=== PATIENT | male | born 1960 ===

== ENCOUNTER 2020-07-21 20:10 | Inpatient (IN) | payer MEDICARE, SELFPAY ==
[~2020-07-21 20:10] MED LIST: Glycopyrrolate 0.2 MG/ML 5 ML SYRINGE ONE; Iopamidol-370 76% 500 ML 1 ML ONE; PHENYLEPHRINE-NS 100 MCG/ML 10 ML SYRINGE ONE; Rocuronium Bromide 10 MG/ML (10ML VIAL) ONE; ePHEDrine 50 MG/ML VIAL ONE
[2020-07-21] MEDS ORDERED: Sodium Bicarb 50 MEQ/50 ML Abboject 8.4% SYRINGE ONE (20:21)
[2020-07-21] MEDS ORDERED: Calcium Chloride 1 GM/10 ML Abboject SYRINGE ONE (20:21)
[2020-07-21] MEDS ORDERED: Fentanyl 100 MCG/2 ML VIAL ONE ×2 (20:28→21:13)
[2020-07-21] MEDS ORDERED: Midazolam HCl 2 mg/2 ml Vial ONE (20:30)
[2020-07-21 20:31] LABS: #Eosinphils 0.1 thou/uL (0.0-0.7); #Lymphocytes 2.4 thou/uL (1.20-3.40); #Monocytes 0.6 thou/uL (0.11-0.59); #Neutrophils 5.9 thou/uL (1.40-6.50); %Basophils 0.4 % (0.0-1.0); %Eosinophils 0.9 % (0.0-10.0); %Lymphocytes 26.2 % (21.0-51.0); %Monocytes 6.6 % (0.0-10.0); Mean Corpuscular HGB CONC 33.2 g/dL (32.0-36.0); Mean Corpuscular Volume 93.5 fL (78.0-98.0); Mean Platelet Volume 6.9 fL (7.4-10.4); Platelet Count 215 thou/uL (130-400); RBC Distribution Width 13.7 % (11.5-14.5); Red Blood Cell (RBC) Count 3.56 mill/uL (4.70-6.10)
[2020-07-21 20:38] LABS: INR-International Normal Ratio 1.2; Prothrombin Time 14.9 sec (12.0-14.7)
[2020-07-21] MEDS ORDERED: Sodium Chloride 0.9% 100 ML ONE (20:40)
[2020-07-21] MEDS ORDERED: Piperacillin/Tazobactam 3.375 GM VIAL ONE (20:40)
[2020-07-21 20:46] LABS: ALT (SGPT) 39 U/L (8-55); AST (SGOT) 102 U/L (5-34); Albumin 3.5 g/dL (3.5-5.0); Alkaline Phosphatase 81 U/L (40-110); Anion Gap 25 mmol/L (10-20); BUN (Urea Nitrogen) 7 mg/dL (8.4-25.7); Bilirubin, Total 0.2 mg/dL (0.2-1.2); CK (CPK) 353 U/L (30-200); Calc. Creatinine Clearance 0 mL/min (70-130); Calcium 7.3 mg/dL (7.8-10.44); Carbon Dioxide 11 mmol/L (22-29); Chloride 103 mmol/L (98-107); Globulin 2.5 g/dL (2.4-3.5); Glucose 134 mg/dL (70-105); Sodium 135 mmol/L (136-145)
[2020-07-21] MEDS ORDERED: Tranexamic Acid 1,000 MG in Sodium Chloride 0.9% 250 ML 250 ML IVPB SCH (21:00)
[2020-07-21 21:05] LABS: Actual Bicarbonate (HCO3a) 13.8 mEq/L (22-28); Analyzer IN Cardio ER; Base Excess (BEa) -11.7 mEq/L (-2.0 to +3.0); CO2 Tension 30.5 mmHg (35.0-45.0); Calcium, Ionized (arterial) 1.47 mmol/L (1.12-1.30); Carboxyhemoglobin (COHb) 0.3 gm% (0.0-3.0); O2 Tension (PaO2), arterial 305.6 mmHg (80.0-100.0); Potassium - ABG Lab 2.57 mmol/L (3.70-5.30); pH, Arterial 7.28 (7.35-7.45)
[2020-07-21 21:07] LABS: Puncture Site LRA
[2020-07-21 21:08] LABS: ALV-art Gradient 369.275 mmHg (0-20)
[2020-07-21] MEDS ORDERED: fentaNYL Citrate/PF 2,000 MCG in Sodium Chloride 0.9% 60 ML IV SCH (21:15)
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
[2020-07-21] MEDS ORDERED: Fentanyl 250 MCG/5 ML VIAL ONE (21:36)
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
[2020-07-21 21:39] LABS: Bacteria/HPF None Seen HPF (None Seen); Bilirubin Negative (Negative); Blood, Urine Trace (Negative); Clarity Clear (Clear); Glucose, Urine (Dipstick) Normal (Negative); Ketone, Urine Negative (Negative); Leukocyte Negative Leu/uL (Negative); Nitrite Negative (Negative); Protein, Urine (Dipstick) Negative (Neg-Trace); RBC/HPF 0-3 HPF (0-3); Squamous Epithelial None Seen HPF (0-3); Urobilinogen Normal mg/dL (Less than 2); WBC/HPF 0-3 HPF (0-3); pH, Urine 5.5 (5.0-9.0)
[2020-07-21] MEDS ORDERED: hydrALAZINE 20 MG/ML VIAL SLOW IVP PRN (21:46)
[2020-07-21] MEDS ORDERED: Dextrose 5% in Water 1,000 ML IV PRN (21:46)
[2020-07-21] MEDS ORDERED: Dextrose 50% Abboject 50 ML SYRINGE SLOW IVP PRN (21:46)
[2020-07-21] MEDS ORDERED: Ondansetron PF 4 MG/2 ML Vial IVP PRN (21:46)
[2020-07-21] MEDS ORDERED: Ventilator Sedation Protocol 1 EACH FS ONE (21:50)
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
[2020-07-21 22:12] LABS: SARS-CoV-2 NAA Rapid Test Not Detected (NotDetected)
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
[2020-07-21 22:38] LABS: Acetaminophen Less than 6.0 mcg/mL (10.0-30.0); Alcohol 250 mg/dL (Less than 10); Alcohol 253 mg/dL (Less than 10); Magnesium 1.3 mg/dL (1.6-2.6); Phosphorus 3.7 mg/dL (2.3-4.7); Salicylate Less than 8.0 mg/dL (15.0-30.0)
[2020-07-21 22:43] LABS: Cocaine Metabolite Screen Not Detected (NotDetected); Medtox Reader # READER 4; Methamphetamine Not Detected (NotDetected); Opiate Screen Not Detected (NotDetected); Phencyclidine (PCP) Not Detected (NotDetected); THC/Cannabinoid Screen Not Detected (NotDetected)
[2020-07-21 22:44] LABS: Amphetamine Not Detected (NotDetected); Barbiturates Screen Not Detected (NotDetected); Benzodiazepine Screen Not Detected (NotDetected); Medtox Control Line Valid? VALID (VALID); Methadone Not Detected (NotDetected); Oxycodone Screen Not Detected (NotDetected); Tricyclic Screen Not Detected (NotDetected)
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
[2020-07-21] MEDS ORDERED: Fentanyl BOLUS 250 ML IVPB PRN (23:00)
[2020-07-21] MEDS ORDERED: Propofol 1,000 MG/100 ML VIAL IV PRN (23:00)
[2020-07-21] MEDS ORDERED: Lorazepam 2 MG/ML VIAL SLOW IVP PRN (23:00)
[2020-07-21] MEDS ORDERED: Morphine 2 MG/ML VIAL SLOW IVP PRN ×2 (23:00→23:26)
[2020-07-21] MEDS ORDERED: Sodium Chloride 0.9% 1,000 ML IV SCH (23:00)
[2020-07-21] MEDS ORDERED: Propofol BOLUS 1,000 MG/100 ML VIAL IV PRN (23:00)
[2020-07-21] MEDS ORDERED: Promethazine HCl 25 MG/ML VIAL SLOW IVP PRN ×2 (23:02→23:45)
[2020-07-21] MEDS ORDERED: Ondansetron HCl/PF 4 MG/2 ML Vial IVP PRN ×2 (23:02→23:45)
[2020-07-21] MEDS ORDERED: Meperidine HCl/PF 25 MG/ML VIAL SLOW IVP PRN (23:02)
[2020-07-21] MEDS ORDERED: HYDROmorphone 2 MG/ML VIAL SLOW IVP PRN (23:02)
[2020-07-21] MEDS ORDERED: Promethazine HCl 25 MG/ML VIAL IM PRN ×2 (23:02→23:45)
[2020-07-21] MEDS ORDERED: DC Sedation Protocol FS ONE (23:21)
[2020-07-22] MEDS ORDERED: Ondansetron PF 4 MG/2 ML Vial ONE (00:03)
[2020-07-22] MEDS ORDERED: Fentanyl 100 MCG/2 ML VIAL ONE (00:19)
[2020-07-22 00:27] LABS: Hemoglobin 10.9 g/dL (14.0-18.0); Mean Corpuscular HGB CONC 34.4 g/dL (32.0-36.0); Mean Corpuscular Hemoglobin 32.1 pg (27.0-31.0); Mean Corpuscular Volume 93.3 fL (78.0-98.0); Mean Platelet Volume 7.2 fL (7.4-10.4); Platelet Count 157 thou/uL (130-400); RBC Distribution Width 13.6 % (11.5-14.5); Red Blood Cell (RBC) Count 3.41 mill/uL (4.70-6.10); White Blood Cell (WBC) Count 3.5 thou/uL (4.8-10.8)
[2020-07-22 00:40] LABS: Lactic Acid 3.9 mmol/L (0.5-2.2)
[2020-07-22 00:42] LABS: Anion Gap 26 mmol/L (10-20); BUN (Urea Nitrogen) 6 mg/dL (8.4-25.7); Calc. Creatinine Clearance 0 mL/min (70-130); Calcium 8.7 mg/dL (7.8-10.44); Carbon Dioxide 12 mmol/L (22-29); Chloride 105 mmol/L (98-107); Glucose 95 mg/dL (70-105); Potassium 3.5 mmol/L (3.5-5.1); Sodium 139 mmol/L (136-145)
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
[2020-07-22] MEDS ORDERED: Multivit, Adult Inj 10 ML VIAL IV SCH (01:30)
[2020-07-22 01:31] VITALS: BMI 21.4
[2020-07-22] MEDS ORDERED: Sodium Chloride 0.9% 1,000 ML IV SCH (01:45)
[2020-07-22] MEDS ORDERED: Thiamine HCl 200 MG/2 ML VIAL IM SCH (02:00)
[2020-07-22] MEDS ORDERED: Multivitamins, Adult 10 ML in Sodium Chloride 0.9% 500 ML IV SCH ×2 (02:00→03:00)
[2020-07-22] MEDS ORDERED: Potassium Chloride 40 MEQ in Sodium Chloride 0.9% 250 ML 250 ML IVPB SCH (02:30)
[2020-07-22] MEDS: Piperacillin/Tazobactam 3.375 GM in Sodium Chloride 0.9% 100 ML IVPB SCH ×4 (03:29→21:10)
[2020-07-22] MEDS: Morphine 4 MG/ML VIAL SLOW IVP PRN ×2 (03:32→08:54)
[2020-07-22] MEDS ORDERED: Oxazepam 10 MG CAP PO PRN (03:54)
[2020-07-22] MEDS: Oxazepam 10 MG CAP PO SCH ×3 (05:34→21:10)
[2020-07-22 06:03] LABS: #Lymphocytes 0.7 thou/uL (1.20-3.40); #Monocytes 0.3 thou/uL (0.11-0.59); #Neutrophils 2.3 thou/uL (1.40-6.50); %Basophils 0.4 % (0.0-1.0); %Eosinophils 0.3 % (0.0-10.0); %Lymphocytes 20.9 % (21.0-51.0); %Monocytes 8.5 % (0.0-10.0); %Neutrophils 69.9 % (42.0-75.0); Hemoglobin 10.1 g/dL (14.0-18.0); Mean Corpuscular HGB CONC 34.2 g/dL (32.0-36.0); Mean Corpuscular Hemoglobin 31.2 pg (27.0-31.0); Mean Corpuscular Volume 91.3 fL (78.0-98.0); Mean Platelet Volume 7.4 fL (7.4-10.4); Platelet Count 146 thou/uL (130-400); RBC Distribution Width 13.6 % (11.5-14.5); Red Blood Cell (RBC) Count 3.25 mill/uL (4.70-6.10); White Blood Cell (WBC) Count 3.2 thou/uL (4.8-10.8)
[2020-07-22 06:08] LABS: Lactic Acid 1.2 mmol/L (0.5-2.2)
[2020-07-22] MEDS ORDERED: Morphine 2 MG/ML VIAL SLOW IVP SCH (06:30)
[2020-07-22 06:38] LABS: Anion Gap 18 mmol/L (10-20); BUN (Urea Nitrogen) 8 mg/dL (8.4-25.7); Calc. Creatinine Clearance 80 mL/min (70-130); Calcium 8.2 mg/dL (7.8-10.44); Carbon Dioxide 19 mmol/L (22-29); Chloride 108 mmol/L (98-107); Glucose 72 mg/dL (70-105); Magnesium 2.3 mg/dL (1.6-2.6); Potassium 4.5 mmol/L (3.5-5.1); Sodium 140 mmol/L (136-145)
[2020-07-22] MEDS: Lactated Ringer's 1,000 ML IV SCH ×2 (07:13→17:46)
[2020-07-22] MEDS: Famotidine/PF 20 mg/2ml Vial SLOW IVP SCH ×2 (08:49→21:10)
[2020-07-22] MEDS ORDERED: Promethazine HCl 25 MG/ML VIAL IM PRN (10:52)
[2020-07-22] MEDS ORDERED: diphenhydrAMINE 50 MG/ML VIAL IVP PRN (10:52)
[2020-07-22] MEDS ORDERED: Naloxone HCl 0.4 mg/ml Vial IV PRN (10:52)
[2020-07-22] MEDS ORDERED: diphenhydrAMINE 50 MG/ML VIAL IM PRN (10:52)
[2020-07-22] MEDS ORDERED: Ketorolac Tromethamine 30 MG/ML VIAL IVP SCH (11:00)
[2020-07-22] MEDS: HYDROmorphone 10 mg/100 ml CADD IVPB PRN (12:10)
[2020-07-22] MEDS: Ketorolac Tromethamine 30 MG/ML VIAL IVP SCH ×3 (12:15→23:42)
[2020-07-22] MEDS: Communication Order-Pharmacy FS SCH (12:19)
[2020-07-22] MEDS ORDERED: Cyclobenzaprine 10 MG TAB PO PRN (13:06)
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
[2020-07-22] MEDS: Acetaminophen 500 MG TAB PO SCH ×2 (14:18→21:09)
[2020-07-22] MEDS: Gabapentin 300 MG CAP PO SCH ×2 (14:18→21:10)
[2020-07-22 18:32] LABS: Medtox Reader # READER 4
[2020-07-22 18:34] LABS: Amphetamine Not Detected (NotDetected); Barbiturates Screen Not Detected (NotDetected); Benzodiazepine Screen Detected (NotDetected); Cocaine Metabolite Screen Not Detected (NotDetected); Medtox Control Line Valid? VALID (VALID); Methadone Not Detected (NotDetected); Methamphetamine Detected (NotDetected); Opiate Screen Detected (NotDetected); Oxycodone Screen Not Detected (NotDetected); Phencyclidine (PCP) Not Detected (NotDetected); THC/Cannabinoid Screen Detected (NotDetected); Tricyclic Screen Not Detected (NotDetected)
--- NOTE | 2020-07-23 01:43 | PRG ---
DATE OF SERVICE: 07/22/2020 SUBJECTIVE: The patient was seen during evening rounds, awake and alert, in no distress. The patient's pain is well controlled with his Dilaudid ROLL OPERATOR pump. The patient is tolerating a clear liquid diet at this time. The patient voices no complaints or concerns. OBJECTIVE: Vital signs are stable and he remains afebrile. PLAN: Continue supportive care and pain regimen with ROLL OPERATOR Dilaudid. N.p.o. after midnight. Orthopedic Surgery plans to take the patient to the OR in the morning for washout and debridement. We will continue maintenance IV fluids overnight. Repeat labs in the morning. We will have PT evaluate and treat postop tomorrow. Job ID: [id number]
[2020-07-23] MEDS: Acetaminophen 500 MG TAB PO SCH ×4 (03:25→21:20)
[2020-07-23] MEDS: Piperacillin/Tazobactam 3.375 GM in Sodium Chloride 0.9% 100 ML IVPB SCH ×4 (03:26→21:21)
[2020-07-23] MEDS: Lactated Ringer's 1,000 ML IV SCH ×2 (03:30→12:41)
[2020-07-23] MEDS: Ketorolac Tromethamine 30 MG/ML VIAL IVP SCH ×4 (06:12→23:34)
[2020-07-23] MEDS: Oxazepam 10 MG CAP PO SCH ×3 (06:12→21:21)
[2020-07-23 06:29] LABS: Band 36 % (5-11); Eosinophils 2 % (0-10); Hemoglobin 8.1 g/dL (14.0-18.0); Lymphocytes 17 % (21-51); MDiff Complete? YES; Mean Corpuscular HGB CONC 33.6 g/dL (32.0-36.0); Mean Corpuscular Hemoglobin 30.9 pg (27.0-31.0); Mean Corpuscular Volume 92.1 fL (78.0-98.0); Metamyelocyte 2 % (0-0); Monocytes 2 % (0-10); Neutrophil 41 % (42-75); Platelet Count 109 thou/uL (130-400); Platelet Morphology Comment Appears Decreased; RBC Distribution Width 13.5 % (11.5-14.5); Red Blood Cell (RBC) Count 2.62 mill/uL (4.70-6.10); White Blood Cell (WBC) Count 6.4 thou/uL (4.8-10.8)
[2020-07-23 06:47] LABS: Anion Gap 12 mmol/L (10-20); BUN (Urea Nitrogen) 13 mg/dL (8.4-25.7); Calc. Creatinine Clearance 70 mL/min (70-130); Calcium 7.4 mg/dL (7.8-10.44); Carbon Dioxide 23 mmol/L (22-29); Chloride 104 mmol/L (98-107); Glucose 89 mg/dL (70-105); Magnesium 1.8 mg/dL (1.6-2.6); Phosphorus 3.9 mg/dL (2.3-4.7); Potassium 4.3 mmol/L (3.5-5.1); Sodium 135 mmol/L (136-145)
[2020-07-23] MEDS: Gabapentin 300 MG CAP PO SCH ×3 (08:40→21:20)
[2020-07-23] MEDS ORDERED: Magnesium 2 GM/50 ML 2 GM in Premix Bag 1 BAG IVPB SCH (08:45)
[2020-07-23] MEDS ORDERED: PHENYLEPHRINE-NS 100 MCG/ML 10 ML SYRINGE ONE (09:40)
[2020-07-23] MEDS ORDERED: Esmolol 100 MG/10 ML VIAL ONE (09:40)
[2020-07-23] MEDS ORDERED: Lidocaine 1% PF 5 ML VIAL ONE (09:40)
[2020-07-23] MEDS ORDERED: Ondansetron PF 4 MG/2 ML Vial ONE (09:40)
[2020-07-23] MEDS ORDERED: PROPOFOL 200 MG/20 ML VIAL ONE (09:40)
[2020-07-23] MEDS ORDERED: Rocuronium Bromide 10 MG/ML (10ML VIAL) ONE (09:40)
[2020-07-23] MEDS ORDERED: ePHEDrine 50 MG/ML VIAL ONE (09:40)
[2020-07-23] MEDS: Famotidine/PF 20 mg/2ml Vial SLOW IVP SCH ×2 (09:42→21:21)
[2020-07-23] MEDS: Communication Order-Pharmacy FS SCH (09:44)
[2020-07-23] MEDS ORDERED: Neomycin-Polymyxin 1 ML AMP ONE ×2 (13:16→13:17)
[2020-07-23] MEDS ORDERED: Fentanyl 100 MCG/2 ML VIAL ONE ×2 (13:16→15:41)
[2020-07-23] MEDS ORDERED: Lidocaine 2% Jelly 5 ML TUBE ONE (13:16)
[2020-07-23] MEDS ORDERED: Sodium Chloride 0.9% 100 ML ONE (13:27)
[2020-07-23] MEDS ORDERED: Piperacillin/Tazobactam 3.375 GM VIAL ONE (13:27)
[2020-07-23] MEDS ORDERED: Gentamicin 80 MG/2 ML VIAL ONE (13:43)
[2020-07-23] MEDS ORDERED: Ondansetron HCl/PF 4 MG/2 ML Vial IVP PRN (15:09)
[2020-07-23] MEDS ORDERED: Promethazine HCl 25 MG/ML VIAL SLOW IVP PRN (15:09)
[2020-07-23] MEDS ORDERED: Promethazine HCl 25 MG/ML VIAL IM PRN (15:09)
[2020-07-23] MEDS ORDERED: Fleet Enema 133 ML BOT PR PRN (15:17)
[2020-07-23] MEDS ORDERED: Cepastat Lozenges 1 LOZ PO PRN (15:17)
[2020-07-23] MEDS ORDERED: Ondansetron PF 4 MG/2 ML Vial IVP PRN (15:17)
[2020-07-23] MEDS ORDERED: Milk Of Magnesia 30 ML UDCUP PO PRN (15:17)
[2020-07-23] MEDS ORDERED: Fentanyl 100 MCG/2 ML VIAL SLOW IVP PRN ×2 (15:17→15:58)
[2020-07-23] MEDS ORDERED: Ondansetron ODT 4 MG TAB PO PRN (15:17)
[2020-07-23] MEDS ORDERED: Bisacodyl 10 MG SUPP PR PRN (15:17)
[2020-07-23] MEDS: HYDROmorphone 10 mg/100 ml CADD IVPB PRN (17:41)
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
[2020-07-23 19:47] LABS: Hemoglobin 7.3 g/dL (14.0-18.0); Mean Corpuscular HGB CONC 34.7 g/dL (32.0-36.0); Mean Corpuscular Hemoglobin 32.8 pg (27.0-31.0); Mean Corpuscular Volume 94.6 fL (78.0-98.0); Mean Platelet Volume 8.3 fL (7.4-10.4); Platelet Count 104 thou/uL (130-400); RBC Distribution Width 13.5 % (11.5-14.5); Red Blood Cell (RBC) Count 2.22 mill/uL (4.70-6.10); White Blood Cell (WBC) Count 6.4 thou/uL (4.8-10.8)
[2020-07-23 19:53] LABS: PTT 38.5 sec (22.9-36.1)
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
[2020-07-23 19:57] LABS: Prothrombin Time 13.5 sec (12.0-14.7)
[2020-07-23] MEDS: Sodium Chloride 0.9% 1,000 ML IV SCH (21:19)
[2020-07-23] MEDS: Senokot S 8.6-50 MG TAB PO SCH (21:20)
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
[2020-07-24] MEDS: HYDROmorphone 10 mg/100 ml CADD IVPB PRN (01:45)
[2020-07-24] MEDS: Acetaminophen 500 MG TAB PO SCH ×4 (01:45→20:45)
[2020-07-24] MEDS: Piperacillin/Tazobactam 3.375 GM in Sodium Chloride 0.9% 100 ML IVPB SCH ×4 (02:25→20:47)
[2020-07-24] MEDS: Ketorolac Tromethamine 30 MG/ML VIAL IVP SCH ×2 (06:31→12:14)
[2020-07-24] MEDS: Oxazepam 10 MG CAP PO SCH ×3 (06:31→20:57)
[2020-07-24 07:19] LABS: #Basophils 0.1 thou/uL (0.0-0.2); #Eosinphils 0.2 thou/uL (0.0-0.7); #Lymphocytes 1.2 thou/uL (1.20-3.40); #Monocytes 0.3 thou/uL (0.11-0.59); #Neutrophils 4.3 thou/uL (1.40-6.50); %Eosinophils 2.9 % (0.0-10.0); %Lymphocytes 20.1 % (21.0-51.0); %Monocytes 4.6 % (0.0-10.0); %Neutrophils 71.4 % (42.0-75.0); Hemoglobin 5.3 g/dL (14.0-18.0); Mean Corpuscular HGB CONC 34.8 g/dL (32.0-36.0); Mean Corpuscular Hemoglobin 32.7 pg (27.0-31.0); Mean Corpuscular Volume 93.9 fL (78.0-98.0); Mean Platelet Volume 7.8 fL (7.4-10.4); Platelet Count 100 thou/uL (130-400); RBC Distribution Width 13.3 % (11.5-14.5); Red Blood Cell (RBC) Count 1.61 mill/uL (4.70-6.10)
[2020-07-24 07:37] LABS: Anion Gap 11 mmol/L (10-20); BUN (Urea Nitrogen) 11 mg/dL (8.4-25.7); Calc. Creatinine Clearance 83 mL/min (70-130); Calcium 6.9 mg/dL (7.8-10.44); Carbon Dioxide 23 mmol/L (22-29); Chloride 103 mmol/L (98-107); Glucose 80 mg/dL (70-105); Sodium 133 mmol/L (136-145)
[2020-07-24 07:38] LABS: CK (CPK) 1123 U/L (30-200); Phosphorus 3.3 mg/dL (2.3-4.7)
[2020-07-24] MEDS: Gabapentin 300 MG CAP PO SCH ×3 (08:50→20:46)
[2020-07-24] MEDS: Famotidine/PF 20 mg/2ml Vial SLOW IVP SCH ×2 (08:50→20:45)
[2020-07-24] MEDS: Senokot S 8.6-50 MG TAB PO SCH ×2 (08:51→20:47)
[2020-07-24] MEDS: Sodium Chloride 0.9% 1,000 ML IV SCH (08:52)
[2020-07-24] MEDS: Multivitamin W/ Minerals 1 TAB PO SCH (08:52)
[2020-07-24] MEDS: Communication Order-Pharmacy FS SCH (08:53)
[2020-07-24] MEDS ORDERED: Ascorbic Acid 500 mg Chewable Tablet PO SCH (09:00)
[2020-07-24] MEDS ORDERED: Ferrous Gluconate 324 MG TAB PO SCH (09:00)
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
--- NOTE | 2020-07-24 15:40 | PRG ---
DATE OF SERVICE: 07/24/2020 SUBJECTIVE: Mr. Keenan underwent irrigation and debridement of the right hip region including the right ilium and adductor muscle region. He had some necrotic adductor muscle that was debrided. Some of the fragments of the anterior aspect of the right ilium was able to be brought forth and tied to the other fragments using #2 FiberWire. The wound was partially left open for continued drainage. The patient did indeed have continued significant drainage last night. He reports fairly good pain control. OBJECTIVE: VITAL SIGNS: The patient is afebrile. Respiratory rate 20, O2 saturation is 95% on room air, blood pressure 116/83, pulse 102. LABORATORY: CBC shows white count of 6, his hemoglobin was 5.3 with a hematocrit of 15.1. Chemistry shows slightly low sodium of 133. The right lower extremity is neurovascularly intact. The patient is able to actively flex the right hip. The patient will require additional debridement of the wound. I will plan on performing additional irrigation and debridement probably on Thursday with possibility of a wound closure depending on how the muscle and other tissue appears. Job ID: [id number]
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
[2020-07-24 19:32] LABS: Hemoglobin 7.3 g/dL (14.0-18.0)
[2020-07-24] MEDS: Ascorbic Acid 500 mg Chewable Tablet PO SCH (20:46)
[2020-07-24] MEDS: Ferrous Sulfate 325 MG TAB PO SCH (20:46)
[2020-07-25] MEDS: Acetaminophen 500 MG TAB PO SCH ×3 (02:35→14:18)
[2020-07-25] MEDS: Piperacillin/Tazobactam 3.375 GM in Sodium Chloride 0.9% 100 ML IVPB SCH ×4 (02:35→21:37)
[2020-07-25] MEDS: Sodium Chloride 0.9% 1,000 ML IV SCH (03:50)
[2020-07-25] MEDS: Oxazepam 10 MG CAP PO SCH ×3 (05:28→23:47)
[2020-07-25 05:53] LABS: #Eosinphils 0.3 thou/uL (0.0-0.7); #Lymphocytes 1.6 thou/uL (1.20-3.40); #Monocytes 0.5 thou/uL (0.11-0.59); #Neutrophils 5.2 thou/uL (1.40-6.50); %Basophils 0.4 % (0.0-1.0); %Eosinophils 3.6 % (0.0-10.0); %Lymphocytes 21.4 % (21.0-51.0); %Monocytes 6.7 % (0.0-10.0); Hemoglobin 6.6 g/dL (14.0-18.0); Mean Corpuscular HGB CONC 33.8 g/dL (32.0-36.0); Mean Corpuscular Hemoglobin 31.3 pg (27.0-31.0); Mean Corpuscular Volume 92.5 fL (78.0-98.0); Mean Platelet Volume 7.4 fL (7.4-10.4); Platelet Count 151 thou/uL (130-400); RBC Distribution Width 12.9 % (11.5-14.5); Red Blood Cell (RBC) Count 2.11 mill/uL (4.70-6.10); White Blood Cell (WBC) Count 7.6 thou/uL (4.8-10.8)
[2020-07-25 06:17] LABS: Anion Gap 13 mmol/L (10-20); BUN (Urea Nitrogen) 6 mg/dL (8.4-25.7); Calc. Creatinine Clearance 86 mL/min (70-130); Calcium 7.6 mg/dL (7.8-10.44); Carbon Dioxide 21 mmol/L (22-29); Chloride 107 mmol/L (98-107); Glucose 81 mg/dL (70-105); Magnesium 1.9 mg/dL (1.6-2.6); Potassium 3.9 mmol/L (3.5-5.1); Sodium 137 mmol/L (136-145)
[2020-07-25] MEDS: HYDROmorphone 10 mg/100 ml CADD IVPB PRN (06:51)
[2020-07-25 07:09] LABS: Phosphorus 2.6 mg/dL (2.3-4.7)
[2020-07-25] MEDS: Gabapentin 300 MG CAP PO SCH ×3 (09:05→21:36)
[2020-07-25] MEDS: Ferrous Sulfate 325 MG TAB PO SCH ×2 (09:06→21:36)
[2020-07-25] MEDS: Famotidine/PF 20 mg/2ml Vial SLOW IVP SCH (09:06)
[2020-07-25] MEDS: Senokot S 8.6-50 MG TAB PO SCH ×2 (09:07→21:36)
[2020-07-25] MEDS: Ascorbic Acid 500 mg Chewable Tablet PO SCH ×2 (09:07→21:36)
[2020-07-25] MEDS: Multivitamin W/ Minerals 1 TAB PO SCH (09:07)
[2020-07-25] MEDS: Communication Order-Pharmacy FS SCH (09:42)
[2020-07-25] MEDS ORDERED: traMADol HCl 50 MG TAB PO PRN (11:45)
[2020-07-25] MEDS: Ibuprofen 600 MG TAB PO SCH ×2 (14:16→23:48)
[2020-07-25] MEDS: traMADol HCl 50 MG TAB PO PRN ×2 (16:12→21:40)
[2020-07-25] MEDS: Acetaminophen 325 MG TAB PO SCH ×2 (17:46→23:47)
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
[2020-07-26] MEDS: Piperacillin/Tazobactam 3.375 GM in Sodium Chloride 0.9% 100 ML IVPB SCH ×4 (03:23→20:58)
[2020-07-26] MEDS: Ibuprofen 600 MG TAB PO SCH ×3 (05:12→22:50)
[2020-07-26] MEDS: Acetaminophen 325 MG TAB PO SCH ×4 (05:12→22:49)
[2020-07-26] MEDS: Oxazepam 10 MG CAP PO SCH ×3 (05:12→20:56)
[2020-07-26 05:35] LABS: #Eosinphils 0.1 thou/uL (0.0-0.7); #Lymphocytes 1.3 thou/uL (1.20-3.40); #Monocytes 1.1 thou/uL (0.11-0.59); #Neutrophils 5.9 thou/uL (1.40-6.50); %Basophils 0.3 % (0.0-1.0); %Eosinophils 1.6 % (0.0-10.0); %Lymphocytes 15.3 % (21.0-51.0); %Monocytes 12.6 % (0.0-10.0); %Neutrophils 70.3 % (42.0-75.0); Hemoglobin 7.5 g/dL (14.0-18.0); Mean Corpuscular HGB CONC 33.7 g/dL (32.0-36.0); Mean Corpuscular Hemoglobin 30.9 pg (27.0-31.0); Mean Corpuscular Volume 91.6 fL (78.0-98.0); Platelet Count 182 thou/uL (130-400); RBC Distribution Width 13.2 % (11.5-14.5); Red Blood Cell (RBC) Count 2.42 mill/uL (4.70-6.10); White Blood Cell (WBC) Count 8.3 thou/uL (4.8-10.8)
[2020-07-26 05:53] LABS: Phosphorus 2.9 mg/dL (2.3-4.7)
[2020-07-26 06:00] LABS: Anion Gap 11 mmol/L (10-20); BUN (Urea Nitrogen) 5 mg/dL (8.4-25.7); Calc. Creatinine Clearance 89 mL/min (70-130); Carbon Dioxide 25 mmol/L (22-29); Chloride 103 mmol/L (98-107); Potassium 3.6 mmol/L (3.5-5.1); Sodium 135 mmol/L (136-145)
[2020-07-26 06:01] LABS: CK (CPK) 525 U/L (30-200); Calcium 7.5 mg/dL (7.8-10.44); Glucose 86 mg/dL (70-105); Magnesium 1.5 mg/dL (1.6-2.6)
[2020-07-26] MEDS ORDERED: Magnesium Sulfate 4 GM in Sodium Chloride 0.9% 250 ML 250 ML IVPB SCH (07:45)
[2020-07-26] MEDS: Senokot S 8.6-50 MG TAB PO SCH ×2 (09:29→20:56)
[2020-07-26] MEDS: Hydrochlorothiazide 25 MG TAB PO SCH (09:30)
[2020-07-26] MEDS: Losartan 25 MG TAB PO SCH (09:30)
[2020-07-26] MEDS: Ferrous Sulfate 325 MG TAB PO SCH ×2 (09:30→20:57)
[2020-07-26] MEDS: Multivitamin W/ Minerals 1 TAB PO SCH (09:31)
[2020-07-26] MEDS: Ascorbic Acid 500 mg Chewable Tablet PO SCH ×2 (09:31→20:56)
[2020-07-26] MEDS: Gabapentin 300 MG CAP PO SCH ×3 (09:31→20:56)
[2020-07-26] MEDS: traMADol HCl 50 MG TAB PO SCH ×3 (12:49→22:50)
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
--- NOTE | 2020-07-26 16:15 | PRG ---
DATE OF SERVICE: 07/26/2020 SUBJECTIVE: The patient has fairly good pain control. He was able to ambulate down in the [place] yesterday, ambulated with Physical Therapy in the room today. He does not report any particular problems. He has been passing gas. OBJECTIVE: VITAL SIGNS: Temperature 99.8, pulse 93, respiratory rate 18, blood pressure 156/91, and O2 saturation 95% on room air. LABORATORY DATA: This morning shows white count 8.3, hemoglobin 7.5, and hematocrit 22.2. PLAN: The patient will be taken back to the operating room on Thursday in 2 days on 07/28/2020 for irrigation and debridement, possible closure over drains. Discussed this with the patient as well as his caregiver. His sister came in from [place]. He agrees to the procedure. Right now scheduled for 8 in the morning. Job ID: [id number]
[2020-07-27] MEDS: Piperacillin/Tazobactam 3.375 GM in Sodium Chloride 0.9% 100 ML IVPB SCH ×4 (02:45→21:44)
[2020-07-27] MEDS: traMADol HCl 50 MG TAB PO SCH ×4 (04:49→22:41)
[2020-07-27] MEDS: Oxazepam 10 MG CAP PO SCH ×3 (04:50→22:41)
[2020-07-27] MEDS: Ibuprofen 600 MG TAB PO SCH ×3 (04:50→22:41)
[2020-07-27] MEDS: Acetaminophen 325 MG TAB PO SCH ×4 (04:52→22:42)
[2020-07-27 05:41] LABS: Anion Gap 13 mmol/L (10-20); BUN (Urea Nitrogen) 5 mg/dL (8.4-25.7); Calc. Creatinine Clearance 98 mL/min (70-130); Calcium 7.7 mg/dL (7.8-10.44); Carbon Dioxide 24 mmol/L (22-29); Chloride 101 mmol/L (98-107); Glucose 82 mg/dL (70-105); Magnesium 1.9 mg/dL (1.6-2.6); Phosphorus 3.4 mg/dL (2.3-4.7); Potassium 3.3 mmol/L (3.5-5.1); Sodium 135 mmol/L (136-145)
[2020-07-27 05:46] LABS: Band 12 % (5-11); Eosinophils 3 % (0-10); Hemoglobin 7.7 g/dL (14.0-18.0); Hypochromia SLIGHT = 6-15 cells (100X) (0-5/hpf); Lymphocytes 12 % (21-51); MDiff Complete? YES; Mean Corpuscular HGB CONC 33.8 g/dL (32.0-36.0); Mean Corpuscular Hemoglobin 30.9 pg (27.0-31.0); Mean Corpuscular Volume 91.3 fL (78.0-98.0); Mean Platelet Volume 7.2 fL (7.4-10.4); Monocytes 11 % (0-10); Neutrophil 57 % (42-75); Nucleated RBC 2 % (0); Platelet Count 252 thou/uL (130-400); Platelet Morphology Comment Appears Adequate; RBC Distribution Width 13.2 % (11.5-14.5); Reactive Lymphocytes 5 % (0-10); Red Blood Cell (RBC) Count 2.48 mill/uL (4.70-6.10); White Blood Cell (WBC) Count 9.1 thou/uL (4.8-10.8)
--- NOTE | 2020-07-27 07:57 | RAD ---
Exam: Chest one view HISTORY:Evaluate for pneumonia Comparison: 07/21/2020 FINDINGS: Lines and tubes: Interval removal of endotracheal and nasogastric tube. Stable left-sided subclavian vascular catheter. Cardiac silhouette: Normal Aorta: Unremarkable Pulmonary vessels: Bilateral veil-like opacities may be due to is bilateral pleural effusions. Costophrenic angles: Clear LUNGS: Bibasilar opacities have developed since the previous examination. Correlate for atelectasis, aspiration or bibasilar pneumonia. Pneumothorax: None Osseous abnormalities: None IMPRESSION: 1. Interval development of bibasilar pleural and parenchymal changes as described above. Correlate fo r aspiration, atelectasis and/or pneumonia.
[2020-07-27] MEDS: Ascorbic Acid 500 mg Chewable Tablet PO SCH ×2 (09:26→20:51)
[2020-07-27] MEDS: Multivitamin W/ Minerals 1 TAB PO SCH (09:27)
[2020-07-27] MEDS: Hydrochlorothiazide 25 MG TAB PO SCH (09:27)
[2020-07-27] MEDS: Ferrous Sulfate 325 MG TAB PO SCH ×2 (09:27→20:51)
[2020-07-27] MEDS: Senokot S 8.6-50 MG TAB PO SCH ×2 (09:27→20:52)
[2020-07-27] MEDS: Gabapentin 300 MG CAP PO SCH ×3 (09:27→20:51)
[2020-07-27] MEDS: Losartan 25 MG TAB PO SCH (09:28)
[2020-07-27] MEDS ORDERED: Potassium Phosphate 30 MMOL in Sodium Chloride 0.9% 250 ML 250 ML IVPB SCH (10:15)
[2020-07-27] MEDS ORDERED: Magnesium 2 GM/50 ML 2 GM in Premix Bag 1 BAG IVPB SCH (10:15)
[2020-07-27] MEDS: traMADol HCl 50 MG TAB PO PRN (15:10)
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
[2020-07-27] MEDS: Enoxaparin Sodium 40 MG/0.4 ML SYRINGE SC SCH (21:44)
[2020-07-28] MEDS: Piperacillin/Tazobactam 3.375 GM in Sodium Chloride 0.9% 100 ML IVPB SCH ×4 (02:30→21:36)
[2020-07-28] MEDS: Acetaminophen 325 MG TAB PO SCH ×4 (04:54→23:28)
[2020-07-28] MEDS: traMADol HCl 50 MG TAB PO SCH ×4 (04:54→21:35)
[2020-07-28] MEDS: Oxazepam 10 MG CAP PO SCH ×3 (04:54→21:34)
[2020-07-28] MEDS: Ibuprofen 600 MG TAB PO SCH ×3 (04:54→21:34)
[2020-07-28 05:46] LABS: Anion Gap 13 mmol/L (10-20); BUN (Urea Nitrogen) 6 mg/dL (8.4-25.7); Calc. Creatinine Clearance 98 mL/min (70-130); Calcium 7.7 mg/dL (7.8-10.44); Carbon Dioxide 25 mmol/L (22-29); Chloride 101 mmol/L (98-107); Glucose 77 mg/dL (70-105); Magnesium 1.8 mg/dL (1.6-2.6); Phosphorus 3.9 mg/dL (2.3-4.7); Potassium 3.5 mmol/L (3.5-5.1); Sodium 135 mmol/L (136-145)
[2020-07-28 06:00] LABS: Band 10 % (5-11); Eosinophils 2 % (0-10); Hemoglobin 7.2 g/dL (14.0-18.0); Lymphocytes 21 % (21-51); MDiff Complete? YES; Mean Corpuscular Hemoglobin 29.6 pg (27.0-31.0); Mean Corpuscular Volume 92.3 fL (78.0-98.0); Mean Platelet Volume 7.2 fL (7.4-10.4); Monocytes 19 % (0-10); Neutrophil 48 % (42-75); Platelet Count 344 thou/uL (130-400); Platelet Morphology Comment Appears Adequate; RBC Distribution Width 13.7 % (11.5-14.5); Red Blood Cell (RBC) Count 2.43 mill/uL (4.70-6.10); White Blood Cell (WBC) Count 8.5 thou/uL (4.8-10.8)
[2020-07-28] MEDS ORDERED: Piperacillin/Tazobactam 3.375 GM VIAL ONE (07:17)
[2020-07-28] MEDS ORDERED: Neomycin-Polymyxin 1 ML AMP ONE (07:22)
[2020-07-28] MEDS ORDERED: Fentanyl 100 MCG/2 ML VIAL ONE ×4 (08:02→10:18)
[2020-07-28] MEDS ORDERED: Ondansetron PF 4 MG/2 ML Vial IVP PRN (09:31)
[2020-07-28] MEDS ORDERED: Cepastat Lozenges 1 LOZ PO PRN (09:31)
[2020-07-28] MEDS ORDERED: Bisacodyl 10 MG SUPP PR PRN (09:31)
[2020-07-28] MEDS ORDERED: Ondansetron ODT 4 MG TAB PO PRN (09:31)
[2020-07-28] MEDS ORDERED: Milk Of Magnesia 30 ML UDCUP PO PRN (09:31)
[2020-07-28] MEDS ORDERED: Promethazine HCl 25 MG/ML VIAL IM PRN (09:33)
[2020-07-28] MEDS ORDERED: Promethazine HCl 25 MG/ML VIAL SLOW IVP PRN (09:33)
[2020-07-28] MEDS ORDERED: Ondansetron HCl/PF 4 MG/2 ML Vial IVP PRN (09:33)
[2020-07-28] MEDS: Hydrochlorothiazide 25 MG TAB PO SCH ×2 (09:45→11:36)
[2020-07-28] MEDS: Ascorbic Acid 500 mg Chewable Tablet PO SCH ×2 (09:45→21:34)
[2020-07-28] MEDS: Multivitamin W/ Minerals 1 TAB PO SCH (09:45)
[2020-07-28] MEDS: Ferrous Sulfate 325 MG TAB PO SCH ×2 (09:45→21:35)
[2020-07-28] MEDS: Gabapentin 300 MG CAP PO SCH ×3 (09:45→21:33)
[2020-07-28] MEDS: Losartan 25 MG TAB PO SCH ×2 (09:45→11:38)
[2020-07-28] MEDS: Senokot S 8.6-50 MG TAB PO SCH ×2 (09:46→21:33)
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
[2020-07-28] MEDS ORDERED: Ondansetron PF 4 MG/2 ML Vial ONE (10:40)
[2020-07-28] MEDS ORDERED: Dexamethasone 20 MG/5 ML VIAL ONE (10:40)
[2020-07-28] MEDS ORDERED: PROPOFOL 200 MG/20 ML VIAL ONE (10:40)
[2020-07-28] MEDS: Fentanyl 100 MCG/2 ML VIAL SLOW IVP PRN ×3 (11:40→14:56)
[2020-07-28] MEDS ORDERED: Ferrous Gluconate 324 MG TAB PO SCH (21:00)
[2020-07-28] MEDS: Enoxaparin Sodium 40 MG/0.4 ML SYRINGE SC SCH (21:34)
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
[2020-07-28] MEDS: traMADol HCl 50 MG TAB PO PRN (23:31)
[2020-07-28] MEDS: diphenhydrAMINE 25 MG CAP PO PRN (23:35)
[2020-07-29] MEDS: Acetaminophen 325 MG TAB PO SCH ×3 (05:22→17:07)
[2020-07-29] MEDS: traMADol HCl 50 MG TAB PO SCH ×4 (05:22→21:27)
[2020-07-29] MEDS: Oxazepam 10 MG CAP PO SCH ×3 (05:22→21:27)
[2020-07-29] MEDS: Ibuprofen 600 MG TAB PO SCH ×3 (05:22→21:27)
[2020-07-29 06:18] LABS: Mean Corpuscular HGB CONC 32.9 g/dL (32.0-36.0); Mean Corpuscular Hemoglobin 29.8 pg (27.0-31.0); Mean Corpuscular Volume 90.6 fL (78.0-98.0); Platelet Count 439 thou/uL (130-400); RBC Distribution Width 13.5 % (11.5-14.5); White Blood Cell (WBC) Count 10.4 thou/uL (4.8-10.8)
[2020-07-29 06:37] LABS: Anion Gap 12 mmol/L (10-20); BUN (Urea Nitrogen) 6 mg/dL (8.4-25.7); Calc. Creatinine Clearance 97 mL/min (70-130); Calcium 7.6 mg/dL (7.8-10.44); Carbon Dioxide 25 mmol/L (22-29); Chloride 101 mmol/L (98-107); Glucose 81 mg/dL (70-105); Magnesium 1.7 mg/dL (1.6-2.6); Potassium 3.8 mmol/L (3.5-5.1); Sodium 134 mmol/L (136-145)
[2020-07-29 06:42] LABS: Phosphorus 2.7 mg/dL (2.3-4.7)
[2020-07-29] MEDS: Ferrous Sulfate 325 MG TAB PO SCH ×2 (08:21→21:26)
[2020-07-29] MEDS: Senokot S 8.6-50 MG TAB PO SCH ×2 (08:21→23:10)
[2020-07-29] MEDS: Hydrochlorothiazide 25 MG TAB PO SCH (08:21)
[2020-07-29] MEDS: Losartan 25 MG TAB PO SCH (08:22)
[2020-07-29] MEDS: Multivitamin W/ Minerals 1 TAB PO SCH (08:22)
[2020-07-29] MEDS: Gabapentin 300 MG CAP PO SCH ×3 (08:22→21:26)
[2020-07-29] MEDS: Ascorbic Acid 500 mg Chewable Tablet PO SCH ×2 (08:23→21:27)
[2020-07-29] MEDS ORDERED: Magnesium Sulfate 2 GM in Sodium Chloride 0.9% 250 ML 250 ML IVPB SCH (08:45)
[2020-07-29] MEDS: diphenhydrAMINE 25 MG CAP PO PRN (21:27)
[2020-07-29] MEDS: Enoxaparin Sodium 40 MG/0.4 ML SYRINGE SC SCH (21:28)
[2020-07-29] MEDS: traMADol HCl 50 MG TAB PO PRN (21:28)
[2020-07-30] MEDS: Acetaminophen 325 MG TAB PO SCH ×5 (00:02→23:45)
[2020-07-30] MEDS: traMADol HCl 50 MG TAB PO SCH ×4 (06:00→21:32)
[2020-07-30] MEDS: Ibuprofen 600 MG TAB PO SCH ×3 (06:00→21:32)
[2020-07-30] MEDS: Oxazepam 10 MG CAP PO SCH ×3 (06:01→21:32)
[2020-07-30 06:41] LABS: Hemoglobin 8.7 g/dL (14.0-18.0); Mean Corpuscular Hemoglobin 29.1 pg (27.0-31.0); Mean Corpuscular Volume 90.9 fL (78.0-98.0); Mean Platelet Volume 6.9 fL (7.4-10.4); Platelet Count 558 thou/uL (130-400); RBC Distribution Width 13.6 % (11.5-14.5); Red Blood Cell (RBC) Count 2.99 mill/uL (4.70-6.10); White Blood Cell (WBC) Count 11.1 thou/uL (4.8-10.8)
[2020-07-30 06:46] LABS: Anion Gap 13 mmol/L (10-20); BUN (Urea Nitrogen) 7 mg/dL (8.4-25.7); Calc. Creatinine Clearance 115 mL/min (70-130); Calcium 7.9 mg/dL (7.8-10.44); Carbon Dioxide 26 mmol/L (22-29); Chloride 101 mmol/L (98-107); Glucose 77 mg/dL (70-105); Potassium 3.5 mmol/L (3.5-5.1); Sodium 136 mmol/L (136-145)
[2020-07-30] MEDS: Ferrous Sulfate 325 MG TAB PO SCH ×2 (09:16→21:33)
[2020-07-30] MEDS: Ascorbic Acid 500 mg Chewable Tablet PO SCH ×2 (09:16→21:32)
[2020-07-30] MEDS: Gabapentin 300 MG CAP PO SCH ×3 (09:16→21:32)
[2020-07-30] MEDS: Hydrochlorothiazide 25 MG TAB PO SCH (09:17)
[2020-07-30] MEDS: Multivitamin W/ Minerals 1 TAB PO SCH (09:17)
[2020-07-30] MEDS: Losartan 25 MG TAB PO SCH (09:17)
[2020-07-30] MEDS: Senokot S 8.6-50 MG TAB PO SCH ×2 (09:18→21:57)
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
[2020-07-30] MEDS: Enoxaparin Sodium 40 MG/0.4 ML SYRINGE SC SCH (21:32)
[2020-07-30] MEDS: diphenhydrAMINE 25 MG CAP PO PRN (21:33)
[2020-07-30] MEDS: traMADol HCl 50 MG TAB PO PRN (21:33)
[2020-07-30] MEDS ORDERED: Ciprofloxacin 500 MG TAB PO SCH (22:00)
[2020-07-30] MEDS ORDERED: metroNIDAZOLE 500 MG TAB PO SCH (22:00)
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
[2020-07-31] MEDS: Acetaminophen 325 MG TAB PO SCH ×4 (05:38→23:22)
[2020-07-31] MEDS: Ibuprofen 600 MG TAB PO SCH ×2 (05:38→12:16)
[2020-07-31] MEDS: Oxazepam 10 MG CAP PO SCH ×3 (05:38→22:11)
[2020-07-31] MEDS: traMADol HCl 50 MG TAB PO SCH ×4 (05:38→22:11)
[2020-07-31] MEDS: Ciprofloxacin 500 MG TAB PO SCH ×2 (05:38→19:55)
[2020-07-31 06:36] LABS: Anion Gap 10 mmol/L (10-20); BUN (Urea Nitrogen) 8 mg/dL (8.4-25.7); Calc. Creatinine Clearance 115 mL/min (70-130); Calcium 7.1 mg/dL (7.8-10.44); Carbon Dioxide 28 mmol/L (22-29); Chloride 101 mmol/L (98-107); Glucose 88 mg/dL (70-105); Potassium 3.5 mmol/L (3.5-5.1); Sodium 135 mmol/L (136-145)
[2020-07-31 06:58] LABS: Hemoglobin 6.1 g/dL (14.0-18.0); Mean Corpuscular HGB CONC 34.3 g/dL (32.0-36.0); Mean Corpuscular Hemoglobin 31.4 pg (27.0-31.0); Mean Corpuscular Volume 91.5 fL (78.0-98.0); Mean Platelet Volume 6.6 fL (7.4-10.4); Platelet Count 440 thou/uL (130-400); RBC Distribution Width 13.1 % (11.5-14.5); Red Blood Cell (RBC) Count 1.94 mill/uL (4.70-6.10); White Blood Cell (WBC) Count 11.7 thou/uL (4.8-10.8)
[2020-07-31] MEDS: Ferrous Sulfate 325 MG TAB PO SCH ×2 (08:58→19:55)
[2020-07-31] MEDS: Multivitamin W/ Minerals 1 TAB PO SCH (08:58)
[2020-07-31] MEDS: Losartan 25 MG TAB PO SCH (08:58)
[2020-07-31] MEDS: Ascorbic Acid 500 mg Chewable Tablet PO SCH ×2 (08:58→19:55)
[2020-07-31] MEDS: Gabapentin 300 MG CAP PO SCH ×3 (08:58→19:55)
[2020-07-31] MEDS: Senokot S 8.6-50 MG TAB PO SCH ×2 (08:59→22:12)
[2020-07-31] MEDS: metroNIDAZOLE 500 MG TAB PO SCH ×3 (08:59→19:55)
[2020-07-31] MEDS: Hydrochlorothiazide 25 MG TAB PO SCH (08:59)
[2020-07-31 09:16] LABS: Hemoglobin 5.3 g/dL (14.0-18.0); Mean Corpuscular HGB CONC 32.7 g/dL (32.0-36.0); Mean Corpuscular Hemoglobin 29.9 pg (27.0-31.0); Mean Corpuscular Volume 91.3 fL (78.0-98.0); Platelet Count 475 thou/uL (130-400); RBC Distribution Width 13.3 % (11.5-14.5); Red Blood Cell (RBC) Count 1.77 mill/uL (4.70-6.10); White Blood Cell (WBC) Count 11.4 thou/uL (4.8-10.8)
[2020-07-31 15:30] LABS: Hemoglobin 5.9 g/dL (14.0-18.0); Mean Corpuscular HGB CONC 33.2 g/dL (32.0-36.0); Mean Corpuscular Hemoglobin 29.8 pg (27.0-31.0); Mean Corpuscular Volume 89.7 fL (78.0-98.0); Platelet Count 455 thou/uL (130-400); RBC Distribution Width 13.3 % (11.5-14.5); Red Blood Cell (RBC) Count 1.97 mill/uL (4.70-6.10); White Blood Cell (WBC) Count 12.8 thou/uL (4.8-10.8)
[2020-07-31] MEDS ORDERED: Potassium Chloride 40 MEQ in Premix Bag 1 BAG IVPB SCH (17:45)
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
[2020-07-31] MEDS ORDERED: Calcium Gluconate 4.6 MEQ in Sodium Chloride 0.9% 100 ML IVPB SCH (20:00)
[2020-07-31] MEDS ORDERED: Sodium Chloride 0.9% (PF) 10 ML VIAL FS PRN (21:30)
[2020-07-31] MEDS: traMADol HCl 50 MG TAB PO PRN (22:11)
[2020-07-31] MEDS: diphenhydrAMINE 25 MG CAP PO PRN (22:11)
[2020-07-31] MEDS: Pantoprazole 40 MG VIAL IVP SCH (22:12)
[2020-08-01 00:46] LABS: Hemoglobin 6.8 g/dL (14.0-18.0); Mean Corpuscular HGB CONC 34.1 g/dL (32.0-36.0); Mean Corpuscular Hemoglobin 29.9 pg (27.0-31.0); Mean Corpuscular Volume 87.9 fL (78.0-98.0); Mean Platelet Volume 6.9 fL (7.4-10.4); Platelet Count 415 thou/uL (130-400); RBC Distribution Width 13.7 % (11.5-14.5); Red Blood Cell (RBC) Count 2.26 mill/uL (4.70-6.10); White Blood Cell (WBC) Count 13.4 thou/uL (4.8-10.8)
[2020-08-01 00:54] LABS: PTT 30.7 sec (22.9-36.1); Prothrombin Time 13.6 sec (12.0-14.7)
[2020-08-01 01:03] LABS: Lactic Acid 0.8 mmol/L (0.5-2.2)
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
[2020-08-01] MEDS: traMADol HCl 50 MG TAB PO SCH ×4 (05:23→22:57)
[2020-08-01] MEDS: Acetaminophen 325 MG TAB PO SCH ×4 (05:24→22:59)
[2020-08-01] MEDS: Ciprofloxacin 500 MG TAB PO SCH ×2 (05:24→20:20)
[2020-08-01] MEDS: Oxazepam 10 MG CAP PO SCH (05:24)
[2020-08-01 06:50] LABS: Hemoglobin 7.4 g/dL (14.0-18.0); Mean Corpuscular HGB CONC 34.3 g/dL (32.0-36.0); Mean Corpuscular Hemoglobin 30.1 pg (27.0-31.0); Mean Corpuscular Volume 87.8 fL (78.0-98.0); Platelet Count 435 thou/uL (130-400); RBC Distribution Width 13.3 % (11.5-14.5); Red Blood Cell (RBC) Count 2.45 mill/uL (4.70-6.10); White Blood Cell (WBC) Count 11.2 thou/uL (4.8-10.8)
[2020-08-01 07:15] LABS: Anion Gap 10 mmol/L (10-20); BUN (Urea Nitrogen) 7 mg/dL (8.4-25.7); Calc. Creatinine Clearance 114 mL/min (70-130); Calcium 7.5 mg/dL (7.8-10.44); Carbon Dioxide 26 mmol/L (22-29); Chloride 102 mmol/L (98-107); Glucose 85 mg/dL (70-105); Magnesium 1.5 mg/dL (1.6-2.6); Phosphorus 2.7 mg/dL (2.3-4.7); Potassium 3.7 mmol/L (3.5-5.1); Sodium 134 mmol/L (136-145)
[2020-08-01] MEDS ORDERED: Potassium Phosphate 30 MMOL, Magnesium Sulfate 4 GM in Sodium Chloride 0.9% 250 ML 250 ML IVPB SCH (09:00)
[2020-08-01 09:07] LABS: PTT 30.7 sec (22.9-36.1); Prothrombin Time 13.4 sec (12.0-14.7)
[2020-08-01] MEDS: metroNIDAZOLE 500 MG TAB PO SCH ×3 (09:16→20:21)
[2020-08-01] MEDS: Gabapentin 300 MG CAP PO SCH ×3 (09:16→20:20)
[2020-08-01] MEDS: Pantoprazole 40 MG VIAL IVP SCH ×2 (09:16→20:21)
[2020-08-01] MEDS: Saccharomyces boulardii 250 MG CAP PO SCH (09:18)
[2020-08-01] MEDS: Multivitamin W/ Minerals 1 TAB PO SCH (09:19)
[2020-08-01] MEDS: Senokot S 8.6-50 MG TAB PO SCH ×2 (09:19→20:20)
[2020-08-01] MEDS: Ferrous Sulfate 325 MG TAB PO SCH ×2 (09:19→20:20)
[2020-08-01] MEDS: Ascorbic Acid 500 mg Chewable Tablet PO SCH ×2 (09:19→20:20)
[2020-08-01] MEDS: Hydrochlorothiazide 25 MG TAB PO SCH (09:20)
[2020-08-01] MEDS: Losartan 25 MG TAB PO SCH (09:20)
--- NOTE | 2020-08-01 14:43 | ULT ---
BILATERAL LOWER EXTREMITY VENOUS DOPPLER ULTRASOUND: 08/01/20 HISTORY: Bilateral lower extremity edema and pain. TECHNIQUE: Archer scale, color flow and spectral Doppler imaging of the deep venous system of the lower extremitie s is performed is performed bilaterally. FINDINGS: There is good flow, compression, and augmentation noted in the common femoral, femoral, deep femoral, popliteal, posterior tibial and greater saphenous veins on either side. IMPRESSION: No evidence of DVT in either lower extremity. POS: AH
[2020-08-01] MEDS: traMADol HCl 50 MG TAB PO PRN ×2 (16:15→22:59)
[2020-08-01] MEDS ORDERED: GoLYTELY 4,000 ml Bottle PO SCH (19:00)
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
[2020-08-01] MEDS: Sodium Chloride 0.9% 1,000 ML IV SCH (20:19)
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
[2020-08-02] MEDS: Ciprofloxacin 500 MG TAB PO SCH ×2 (05:06→22:23)
[2020-08-02] MEDS: traMADol HCl 50 MG TAB PO SCH ×4 (05:06→22:28)
[2020-08-02] MEDS: Acetaminophen 325 MG TAB PO SCH ×4 (05:06→23:43)
[2020-08-02 05:32] LABS: #Eosinphils 0.1 thou/uL (0.0-0.7); #Lymphocytes 2.1 thou/uL (1.20-3.40); #Monocytes 1.4 thou/uL (0.11-0.59); #Neutrophils 7.6 thou/uL (1.40-6.50); %Basophils 0.2 % (0.0-1.0); %Eosinophils 1.1 % (0.0-10.0); %Monocytes 12.3 % (0.0-10.0); %Neutrophils 67.4 % (42.0-75.0); Hemoglobin 8.6 g/dL (14.0-18.0); Mean Corpuscular HGB CONC 34.5 g/dL (32.0-36.0); Mean Corpuscular Hemoglobin 30.3 pg (27.0-31.0); Mean Platelet Volume 6.5 fL (7.4-10.4); Platelet Count 550 thou/uL (130-400); RBC Distribution Width 13.1 % (11.5-14.5); Red Blood Cell (RBC) Count 2.85 mill/uL (4.70-6.10); White Blood Cell (WBC) Count 11.3 thou/uL (4.8-10.8)
[2020-08-02 05:44] LABS: Anion Gap 13 mmol/L (10-20); BUN (Urea Nitrogen) 4 mg/dL (8.4-25.7); Calc. Creatinine Clearance 112 mL/min (70-130); Calcium 7.7 mg/dL (7.8-10.44); Carbon Dioxide 27 mmol/L (22-29); Chloride 100 mmol/L (98-107); Glucose 84 mg/dL (70-105); Magnesium 1.7 mg/dL (1.6-2.6); Phosphorus 2.9 mg/dL (2.3-4.7); Sodium 136 mmol/L (136-145)
[2020-08-02] MEDS: Sodium Chloride 0.9% 1,000 ML IV SCH ×2 (06:46→15:11)
[2020-08-02] MEDS ORDERED: Sodium Phosphate 30 MMOL in Sodium Chloride 0.9% 250 ML 250 ML IVPB SCH (09:00)
[2020-08-02] MEDS: Ferrous Sulfate 325 MG TAB PO SCH ×2 (09:00→22:23)
[2020-08-02] MEDS: Senokot S 8.6-50 MG TAB PO SCH ×2 (09:00→22:24)
[2020-08-02] MEDS: Gabapentin 300 MG CAP PO SCH ×3 (09:00→22:23)
[2020-08-02] MEDS: Multivitamin W/ Minerals 1 TAB PO SCH (09:00)
[2020-08-02] MEDS ORDERED: Magnesium Sulfate 3 GM in Sodium Chloride 0.9% 100 ML IVPB SCH (09:00)
[2020-08-02] MEDS: Pantoprazole 40 MG VIAL IVP SCH ×2 (09:00→22:24)
[2020-08-02] MEDS: Ascorbic Acid 500 mg Chewable Tablet PO SCH ×2 (09:00→22:23)
[2020-08-02] MEDS: metroNIDAZOLE 500 MG TAB PO SCH ×3 (09:00→22:23)
[2020-08-02] MEDS ORDERED: Ondansetron HCl/PF 4 MG/2 ML Vial IVP PRN (11:08)
[2020-08-02] MEDS ORDERED: Promethazine HCl 25 MG/ML VIAL IM PRN (11:08)
[2020-08-02] MEDS ORDERED: Promethazine HCl 25 MG/ML VIAL SLOW IVP PRN (11:08)
[2020-08-02] MEDS ORDERED: Fentanyl 100 MCG/2 ML VIAL ONE (11:45)
[2020-08-02] MEDS ORDERED: hydrALAZINE 20 MG/ML VIAL ONE (11:50)
--- NOTE | 2020-08-02 11:54 | OP ---
DATE OF PROCEDURE: 08/02/2020 PROCEDURE PERFORMED: Esophagogastroduodenoscopy and colonoscopy with snare polypectomy. PREOPERATIVE DIAGNOSES: GI bleed and anemia. DESCRIPTION OF PROCEDURE: Informed consent was obtained from the patient. He was sedated with total intravenous anesthesia. The bite block was placed and the endoscope was advanced easily to the second portion of the duodenum and retroflexion was performed in the stomach. The esophagus was normal. The GE junction had a 1 cm hiatal hernia. The stomach was normal including retroflexed views. The pylorus and first and second portions of the duodenum were normal. The patient was turned around. Rectal exam was performed and was normal. The colonoscope was advanced to the cecum with some difficulty. The appendiceal orifice and ileocecal valve were clearly identified. There was some bunched up mucosa in the cecal area, but no actual sutures were seen. There were no stigmata of recent bleeding or bleeding site identified. The preparation quality was adequate after extensive irrigation. I removed two polyps measuring 4 mm from the transverse colon by cold snare polypectomy. There was mild diverticulosis in the sigmoid colon. Retroflexed views in the rectum revealed small internal hemorrhoids. IMPRESSION: 1. Normal EGD. 2. Sigmoid mild diverticulosis. 3. Two polyps measuring 4 mm were removed from the transverse colon by cold snare. 4. Small internal hemorrhoids. 5. Otherwise normal colonoscopy. There were no stigmata of recent bleeding and no significant bleeding source identified. RECOMMENDATIONS: 1. Advance diet. 2. Follow trend of the hemoglobin. 3. Await histopathology. 4. I will sign off for now, please call if GI can be of help. Job ID: [id number]
[2020-08-02] MEDS ORDERED: PROPOFOL 200 MG/20 ML VIAL ONE (12:15)
[2020-08-02] MEDS ORDERED: Lidocaine 1% PF 5 ML VIAL ONE (12:15)
[2020-08-02] MEDS: Hydrochlorothiazide 25 MG TAB PO SCH (13:15)
[2020-08-02] MEDS: Losartan 25 MG TAB PO SCH (13:16)
[2020-08-02] MEDS: traMADol HCl 50 MG TAB PO PRN ×2 (13:17→22:29)
[2020-08-02] MEDS: Saccharomyces boulardii 250 MG CAP PO SCH (13:17)
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
[2020-08-03] MEDS: Ciprofloxacin 500 MG TAB PO SCH ×2 (05:56→20:11)
[2020-08-03] MEDS: traMADol HCl 50 MG TAB PO SCH ×4 (05:56→23:11)
[2020-08-03] MEDS: Acetaminophen 325 MG TAB PO SCH ×4 (05:57→23:10)
[2020-08-03 06:18] LABS: #Eosinphils 0.2 thou/uL (0.0-0.7); #Lymphocytes 1.9 thou/uL (1.20-3.40); #Monocytes 1.1 thou/uL (0.11-0.59); #Neutrophils 4.5 thou/uL (1.40-6.50); %Basophils 0.5 % (0.0-1.0); %Eosinophils 2.6 % (0.0-10.0); %Lymphocytes 24.6 % (21.0-51.0); %Monocytes 14.2 % (0.0-10.0); %Neutrophils 58.1 % (42.0-75.0); Hemoglobin 7.7 g/dL (14.0-18.0); Mean Corpuscular HGB CONC 34.1 g/dL (32.0-36.0); Mean Corpuscular Hemoglobin 30.4 pg (27.0-31.0); Mean Corpuscular Volume 89.4 fL (78.0-98.0); Mean Platelet Volume 6.3 fL (7.4-10.4); Platelet Count 597 thou/uL (130-400); RBC Distribution Width 13.4 % (11.5-14.5); Red Blood Cell (RBC) Count 2.52 mill/uL (4.70-6.10); White Blood Cell (WBC) Count 7.8 thou/uL (4.8-10.8)
[2020-08-03] MEDS: Hydrochlorothiazide 25 MG TAB PO SCH (10:00)
[2020-08-03] MEDS: Gabapentin 300 MG CAP PO SCH ×3 (10:00→20:11)
[2020-08-03] MEDS: Losartan 25 MG TAB PO SCH (10:00)
[2020-08-03] MEDS: Multivitamin W/ Minerals 1 TAB PO SCH (10:02)
[2020-08-03] MEDS: metroNIDAZOLE 500 MG TAB PO SCH ×3 (10:02→20:10)
[2020-08-03] MEDS: Saccharomyces boulardii 250 MG CAP PO SCH (10:02)
[2020-08-03] MEDS: Ferrous Sulfate 325 MG TAB PO SCH ×2 (10:02→20:10)
[2020-08-03] MEDS: Senokot S 8.6-50 MG TAB PO SCH ×2 (10:03→20:10)
[2020-08-03] MEDS: Pantoprazole 40 MG VIAL IVP SCH ×2 (10:03→20:10)
[2020-08-03] MEDS: Ascorbic Acid 500 mg Chewable Tablet PO SCH ×2 (10:15→20:11)
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
[2020-08-03] MEDS: Cyclobenzaprine 10 MG TAB PO PRN (20:10)
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
[2020-08-04] MEDS: Acetaminophen 325 MG TAB PO SCH ×2 (04:59→11:52)
[2020-08-04] MEDS: Ciprofloxacin 500 MG TAB PO SCH (04:59)
[2020-08-04] MEDS: traMADol HCl 50 MG TAB PO SCH ×2 (04:59→11:52)
[2020-08-04 05:22] LABS: Hemoglobin 7.9 g/dL (14.0-18.0); Mean Corpuscular Hemoglobin 29.6 pg (27.0-31.0); Mean Corpuscular Volume 89.6 fL (78.0-98.0); Mean Platelet Volume 6.1 fL (7.4-10.4); Platelet Count 697 thou/uL (130-400); RBC Distribution Width 13.3 % (11.5-14.5); Red Blood Cell (RBC) Count 2.67 mill/uL (4.70-6.10); White Blood Cell (WBC) Count 6.9 thou/uL (4.8-10.8)
[2020-08-04 07:56] VITALS: TEMP 98.2
[2020-08-04] MEDS: Ferrous Sulfate 325 MG TAB PO SCH (08:48)
[2020-08-04] MEDS: Losartan 25 MG TAB PO SCH (08:48)
[2020-08-04] MEDS: Gabapentin 300 MG CAP PO SCH (08:48)
[2020-08-04] MEDS: Hydrochlorothiazide 25 MG TAB PO SCH (08:48)
[2020-08-04] MEDS: Saccharomyces boulardii 250 MG CAP PO SCH (08:48)
[2020-08-04] MEDS: Multivitamin W/ Minerals 1 TAB PO SCH (08:48)
[2020-08-04] MEDS: metroNIDAZOLE 500 MG TAB PO SCH (08:49)
[2020-08-04] MEDS: Ascorbic Acid 500 mg Chewable Tablet PO SCH (08:49)
[2020-08-04] MEDS: Pantoprazole 40 MG VIAL IVP SCH (08:49)
[2020-08-04] MEDS: Senokot S 8.6-50 MG TAB PO SCH (08:49)
[2020-08-04] MEDS: Cyclobenzaprine 10 MG TAB PO PRN (10:28)
[2020-08-04 11:57] VITALS: BP 133/83
--- NOTE | 2020-08-04 15:27 | EKG ---
Test Reason : Blood Pressure : / mmHG Vent. Rate : 105 BPM Atrial Rate : 105 BPM P-R Int : 154 ms QRS Dur : 098 ms QT Int : 360 ms P-R-T Axes : 087 075 056 degrees QTc Int : 475 ms Sinus tachycardia Possible Left atrial enlargement Septal infarct , age undetermined Abnormal ECG Confirmed by EUN HALE, YESENIA ([id number]), photo editor BRIAN AYALA ([id number]) on 08/04/2020 3:27:24 PM Referred By: Confirmed By:YESENIA HAQ MD
[2020-08-06 18:36] LABS: H. pylori IgA ABS Less than 9.0 units (0.0-8.9); H. pylori IgG ABS 1.57 (0.00-0.79); H. pylori IgM ABS Less than 9.0 units (0.0-8.9)
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
== END 2020-08-04 14:45 | disposition home or self-care (01) | DRG 957 ==
LOC: ERS 20:10 → SDC/OP 21:59 → SURG A 23:23 → EEVIPCON 23:23
PROVIDERS: ADMIT Surgery; ATTEND Surgery
PROC: 0KBN0ZZ Excision of Right Hip Muscle, Open Approach (ICD-10-PCS; principal; 2020-07-21)
PROC: 0DQH0ZZ Repair Cecum, Open Approach (ICD-10-PCS; 2020-07-21)
PROC: 02HV33Z Insertion of Infusion Device into Superior Vena Cava, Percutaneous Approach (ICD-10-PCS; 2020-07-21)
PROC: 30233L1 Transfusion of Nonautologous Fresh Plasma into Peripheral Vein, Percutaneous Approach (ICD-10-PCS; 2020-07-21)
PROC: 30233N1 Transfusion of Nonautologous Red Blood Cells into Peripheral Vein, Percutaneous Approach (ICD-10-PCS; 2020-07-21)
PROC: 30233K1 Transfusion of Nonautologous Frozen Plasma into Peripheral Vein, Percutaneous Approach (ICD-10-PCS; 2020-07-21)
PROC: 0KBN0ZZ Excision of Right Hip Muscle, Open Approach (ICD-10-PCS; 2020-07-28)
PROC: 0DJ08ZZ Inspection of Upper Intestinal Tract, Via Natural or Artificial Opening Endoscopic (ICD-10-PCS; 2020-08-02)
PROC: 0DBL8ZZ Excision of Transverse Colon, Via Natural or Artificial Opening Endoscopic (ICD-10-PCS; 2020-08-02)
DX: S36.538A Laceration of other part of colon, initial encounter (principal); J96.00 Acute respiratory failure, unspecified whether with hypoxia or hypercapnia; S36.81XA Injury of peritoneum, initial encounter; S32.391B Other fracture of right ilium, initial encounter for open fracture; R57.8 Other shock; D62 Acute posthemorrhagic anemia; E87.2 Acidosis; K92.2 Gastrointestinal hemorrhage, unspecified; Z20.822 Contact with and (suspected) exposure to COVID-19; I10 Essential (primary) hypertension; W33.02XA Accidental discharge of hunting rifle, initial encounter; S31.813A Puncture wound without foreign body of right buttock, initial encounter; F10.10 Alcohol abuse, uncomplicated; K57.30 Diverticulosis of large intestine without perforation or abscess without bleeding; K64.8 Other hemorrhoids; E83.39 Other disorders of phosphorus metabolism; D69.6 Thrombocytopenia, unspecified
CPT/HCPCS: 31500; 36415; 36430; 36556; 36600; 51702; 71045; 72170; 74177; 75635; 80048; 80053; 80306; 80307; 81003; 81015; 82040; 82550; 82805; 83605; 83690; 83735; 84100; 85025; 85027; 85610; 85730; 86850; 86900; 86901; 88305; 90471; 93005; 93970; 94002; 96365; 96367; 96368; 96374; 96375; C9113; G0390; J0360; J1100; J1580; J1650; J1885; J2001; J2250; J2270; J2405; J2543; J2704; J3010; J3411; J3475; J3480; J3490; J7030; J7050; P9016; P9059; Q0163; Q9967; S0028; U0002